=== PATIENT | female | born 1970 | race Caucasian/White ===

== ENCOUNTER 2016-06-29 23:55 | Emergency (ER) | payer OTHER ==
[2016-06-30] MEDS ORDERED: ONDANSETRON *ODT* 4 MG TABLET SL ONE
[2016-06-30] MEDS ORDERED: MECLIZINE HCL 25 MG TABLET (FP) PO ONE
--- NOTE | 2016-06-30 00:03 | PDOC ---
History of Present Illness - General Chief Complaint: Lightheaded Stated Complaint: DIZZINESS/HEAD PRESSURE/FACIAL TINGLING Time Seen by Provider: 06/29/16 23:56 History Source: Patient, Family Exam Limitations: Language Barrier - History of Present Illness Initial Comments: 06/30/16 00:01 This is a 46-year-old female brought in by her children for evaluation of vertigo. Patient does have a history of vertigo in the past and as per her family they said that she has had more frequent episodes of vertigo over the last several weeks. Patient also has some mild ringing in her left ear otherwise denies any other complaints. Patient said that when she does get the vertigo she does feel nauseous but does not vomit. Patient denies any blurry vision, numbness or weakness or any other neurological complaints. Patient said she did not have a workup including a head CT for her vertigo when he was diagnosed several years ago. PAST MEDICAL HISTORY: no significant history PAST SURGICAL HISTORY: no significant history FAMILY HISTORY: no pertinant history SOCIAL HISTORY: Pt lives with family and is employed. MEDICATIONS: reviewed ALLERGIES: As per nursing notes Review of Systems General: No fevers or chills, no weakness, no weight loss HEENT: No change in vision. No sore throat,. No ear pain CardioVascular: No chest pain or shortness of breath Respiratory:No cough, or wheezing. Gastrointestinal: + nausea, vomitting, diarrhea or constipation, No rectal bleeding Genitourinary: No dysuria, hematuria, or frequency Musculoskeletal: No joint or muscle pain or swelling Neurologic : Plus vertigo, dizziness Psychiatric: nor depression Skin: No rashes or easy bruising Endocrine: no increased thirst or abnormal weight change Allergic: no skin or latex allergy All other systems reviewed and normal GENERAL: The patient is awake, alert, and fully oriented, in no acute distress. HEAD: Normal with no signs of trauma. EYES: Pupils equal, round and reactive to light, extraocular movements intact, sclera anicteric, conjunctiva clear. EXTREMITIES: Normal range of motion, no edema. NEUROLOGICAL: Normal speech, normal gait. Nonfocal exam, grossly intact. PSYCH: Normal mood, normal affect. SKIN: Warm, Dry, normal turgor, no rashes or lesions noted. 06/30/16 02:[address] was negative for any acute pathology. Assessment and plan: This is a 38-year-old female with vertigo symptoms. Patient was concerned as she had not had them for a number of years and then they returned I got a CAT scan which was negative and she was discharged home with a prescription for meclizine. Past History - Past Medical History Allergies/Adverse Reactions: Allergies Allergy/AdvReac Type Severity Reaction Status Date / Time No Known Drug Allergies Allergy Verified 04/12/13 07:32 Home Medications: Ambulatory Orders Meclizine HCl 25 mg PO QID PRN #40 tablet 06/30/16 Ondansetron [Zofran Odt -] 4 mg SL TID #12 od.tablet 06/30/16 Anemia: Yes Diabetes: No GI Disorders: Yes Disorders: No Thyroid Disease: No - Psycho/Social/Smoking Cessation Hx Suicidal Ideation: No Smoking Status: No Smoking History: Never smoked Have you smoked in the past 12 months: No Number of Cigarettes Smoked Daily: 0 Hx Alcohol Use: Yes (SOCIALLY) Drug/Substance Use Hx: No Substance Use Type: Alcohol *Physical Exam - Vital Signs Last Vital Signs Temp Pulse Resp BP Pulse Ox 98.7 F 68 18 139/89 98 06/29/16 23:57 06/29/16 23:57 06/29/16 23:57 06/29/16 23:57 06/29/16 23:57 *DC/Admit/Observation/Transfer Diagnosis at time of Disposition: Vertigo - Discharge Dispostion Disposition: HOME Condition at time of disposition: Stable - Prescriptions Prescriptions: Meclizine HCl 25 mg PO QID PRN #40 tablet PRN Reason: Vertigo Ondansetron [Zofran Odt -] 4 mg SL TID #12 od.tablet - Patient Instructions Printed Discharge Instructions: DI for Benign Paroxysmal Positional Vertigo Additional Instructions: For the dizziness/vertigo take meclizine 1 tablet as often as every 4-6 hours as needed. For nausea you can take Zofran at one tablet dissolve under your tongue as often as every 6-8 hours. Return to the emergency department immediately with ANY new, persistent or worsening symptoms. Continue any medications as previously prescribed by your physician. You should follow up with your primary doctor as soon as possible regarding today's emergency department visit. . Please make sure your doctor reviews the results of your emergency evaluation. Thank you for coming to the Emergency Department today for your care. It was a pleasure to see you today. Please note that your evaluation is INCOMPLETE until you follow-up with your doctor.
[2016-06-30 00:06] VITALS: BP 139/89; PULSE 68; TEMP 98.7; BMI 32.1
== END 2016-06-30 01:07 | disposition home or self-care (01) ==
LOC: FER 23:55
DX: R42 Dizziness and giddiness (principal); D64.9 Anemia, unspecified
CPT/HCPCS: 70450-TC; 99281-25

== ENCOUNTER 2018-02-23 18:47 | Emergency (ER) | payer OTHER ==
[2018-02-23 18:50] VITALS: BP 135/82; PULSE 59; TEMP 98.5; BMI 32.9
--- NOTE | 2018-02-23 18:52 | PDOC ---
Rapid Medical Evaluation Chief Complaint: Lightheaded Time Seen by Provider: 02/23/18 18:51 Medical Evaluation: Allergies Allergy/AdvReac Type Severity Reaction Status Date / Time No Known Drug Allergies Allergy Verified 04/12/13 07:32 Vital Signs Temp Pulse Resp BP Pulse Ox 98.5 F 59 L 18 135/82 98 02/23/18 18:49 02/23/18 18:49 02/23/18 18:49 02/23/18 18:49 02/23/18 18:49 02/23/18 18:51 The patient presents with a chief complaint of: dizziness I have performed a brief in-person evaluation of this patient. Pertinent physical exam findings: vss, stable I have ordered the following: labs, ekg The patient will proceed to the ED for further evaluation.
--- NOTE | 2018-02-23 19:47 | PDOC ---
History of Present Illness - General Chief Complaint: Lightheaded Stated Complaint: BLURRY VISION/HEAD AND NECK PAIN Time Seen by Provider: 02/23/18 18:51 - History of Present Illness Initial Comments: 47 year old female with PMH of vertigo presenting with neck pain, headache, chest pain, right sided facial paresthesias, and lightheadedness. States that all of her symptoms began last Friday with neck tightness and her headache. Described the headache as an intermittent band like squeezing that ranges from 7 /10 to 8/10 which is partially relieved by rest and Advil and does not wake her up out of her sleep. She has had headaches in past but this is in a different location and much worse in intensity. She has also noticed facial tingling since Friday on the right side of her face that is intermittent as well. Her chest pain is a central pressure, non radiating, non-exertional, worse when laying flat, intermittent and a 7/10 with maximum intensity with slight relief with Advil. She has had intermittent blurry vision over the course of all of these symptoms but denies visual field deficits/ floaters. She does admit to some shortness of breath with the chest pain but denies nausea, vomiting, diaphoresis, fevers, chills, cough, congestion, or other symptoms. She has no cardiac history, family cardiac history, and had her check up with her PCP at [address] [place] [address] 6 months prior. Denies any recent travel, hormone replacement, leg swelling, leg pain, leg trauma, history of cancer, or other PE risk factors. 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 Denies EtOH or smoking. 02/23/18 20:20 Past History - Past Medical History Allergies/Adverse Reactions: Allergies Allergy/AdvReac Type Severity Reaction Status Date / Time No Known Drug Allergies Allergy Verified 04/12/13 07:32 Home Medications: Ambulatory Orders Meclizine HCl 25 mg PO QID PRN #40 tablet 06/30/16 Ondansetron [Zofran Odt -] 4 mg SL TID #12 od.tablet 06/30/16 Anemia: Yes COPD: No Diabetes: No GI Disorders: Yes Disorders: No Thyroid Disease: No - Suicide/Smoking/Psychosocial Hx Smoking Status: No Smoking History: Never smoked Have you smoked in the past 12 months: No Number of Cigarettes Smoked Daily: 0 Hx Alcohol Use: Yes (SOCIALLY) Drug/Substance Use Hx: No Substance Use Type: Alcohol Review of Systems - Review of Systems Constitutional: No: Chills, Diaphoresis, Fever HEENTM: Yes: Blurred Vision, Recent change in vision. No: Tearing, Double Vision Respiratory: Yes: Shortness of Breath. No: Cough, SOB with Exertion, Wheezing Cardiac (ROS): Yes: Chest Pain, Lightheadedness. No: Edema, Palpitations, Syncope, Chest Tightness ABD/GI: No: Diarrhea, Nausea : No: Burning, Dysuria, Discharge, Frequency, Hematuria Musculoskeletal: Yes: Muscle Pain. No: Back Pain, Joint Pain, Muscle Weakness Integumentary: No: Change in Color, Erythema, Flushing, Lesions Neurological: Yes: Headache, Paresthesia, Tingling. No: Numbness, Tremors, Weakness, Unsteady Gait, Ataxia Psychiatric: No: Anxiety, Depression, Frequent Crying, Stressors, Sleep Pattern Change, Emotional Problems Endocrine: No: Flushing, Increased Thirst Hematologic/Lymphatic: No: Anemia, Blood Clots, Easy Bleeding, Easy Bruising, Bleeding Diathesis *Physical Exam - Vital Signs Last Vital Signs Temp Pulse Resp BP Pulse Ox 98.5 F 59 L 18 135/82 98 02/23/18 18:49 02/23/18 18:49 02/23/18 18:49 02/23/18 18:49 02/23/18 18:49 - Physical Exam General Appearance: Yes: Nourished, Appropriately Dressed. No: Apparent Distress HEENT: positive: EOMI, NABILA, Normal ENT Inspection, Normal Voice, Pharynx Normal , Other (20/25 vision bilaterally without visual field deficit) Neck: positive: Trachea midline, Normal Thyroid, Supple. negative: Tender, Rigid Respiratory/Chest: positive: Lungs Clear, Normal Breath Sounds. negative: Chest Tender, Respiratory Distress, Accessory Muscle Use Cardiovascular: positive: Regular Rhythm, Regular Rate Gastrointestinal/Abdominal: positive: Normal Bowel Sounds, Flat, Soft. negative : Tender Lymphatic: negative: Adenopathy, Tenderness Musculoskeletal: positive: Normal Inspection. negative: Decreased Range of Motion Extremity: positive: Normal Capillary Refill, Normal Inspection, Normal Range of Motion. negative: Tender Integumentary: positive: Normal Color, Dry, Warm Neurologic: positive: match maker II-XII NML intact, Fully Oriented, Alert, Normal Mood/ Affect, Normal Response, Motor Strength 5/5 Heart Score/ECG Review - History History: Slightly suspicious - Electrocardiogram EKG: Normal - Age Age: 45-65 - Risk Factors Based on the list above the patient has:: No risk factors known - Troponin Troponin: </= normal limit - Score Heart Score - Total: 1 ED Treatment Course - LABORATORY CBC & Chemistry Diagram: 02/23/18 20:41 02/23/18 20:41 Medical Decision Making - Medical Decision Making 47 year old female with PMH of vertigo and GERD presenting with headache, chest pain, and right sided facial paresthsesis intermittently for one week. Head CT negative, labs WNL, CXR negative. Pain improved with 975 Tylenol and Toradol 15 IV. Patient appears very well with stable VS. 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 Patient feeling well and would like to leave. We are comfortable with her gong home as this is not likely ICH (negative head CT w/o risk factors, and contradictory timeline), SC (no risk factors and negative trop/ekg), or PE ( neg risk factors and inconsistent PE/ VS). Will DC home with return precautions and follow up instructions. 02/23/18 21:48 *DC/Admit/Observation/Transfer Diagnosis at time of Disposition: Paresthesias Headache Qualifiers: Headache type: tension-type Headache chronicity pattern: acute headache Intractability: not intractable Qualified Code(s): G44.209 - Tension-type headache, unspecified, not intractable Chest pain Qualifiers: Chest pain type: unspecified Qualified Code(s): R07.9 - Chest pain, unspecified - Discharge Dispostion Disposition: HOME Condition at time of disposition: Improved Decision to Admit order: No - Referrals Referrals: [facility] [place] [Provider Group] - Patient Instructions Printed Discharge Instructions: DI for Headache, DI for Atypical Chest Pain Additional Instructions: Utilice Tylenol e ibuprofeno 600 mg cada 4-6 horas para el dolor. Por favor, jose angel un seguimiento con nuñez PCP en unos arteaga. Regrese al servicio de urgencias si tiene empeoramiento del dolor de hina, empeoramiento del dolor en el pecho o empeoramiento de SOB. Print Language: GREENLANDIC - Post Discharge Activity
[2018-02-23] MEDS ORDERED: ACETAMINOPHEN 500 MG TABLET (FP) PO ONE (20:19)
[2018-02-23] MEDS ORDERED: ACETAMINOPHEN 325 MG TABLET (FP) ONE (20:37)
[2018-02-23 21:10] LABS: BASO % 1.1 % (0-2.0); EOS % 2.7 % (0-4.5); HEMATOCRIT 42.3 % (32.4-45.2); HEMOGLOBIN 14.4 GM/dL (10.7-15.3); LYMPH % 31.7 % (8-40); MCH 29.7 pg (25.7-33.7); MCHC 34.2 g/dl (32.0-36.0); MEAN CELL VOLUME 86.9 fl (80-96); MEAN PLT VOLUME 9.7 fl (7.5-11.1); MONO % 6.1 % (3.8-10.2); NEUT % 58.4 % (42.8-82.8); PLATELET COUNT 275 K/MM3 (134-434); RBC 4.87 M/mm3 (3.60-5.2); RDW 12.8 % (11.6-15.6); WHITE BLOOD COUNT 9.3 K/mm3 (4.0-10.0)
[2018-02-23 21:36] LABS: ALBUMIN 4.2 g/dl (3.4-5.0); ALK PHOS 87 U/L (45-117); ANION GAP 8 MMOL/L (8-16); BILIRUBIN,TOTAL 0.5 mg/dL (0.2-1); BLOOD UREA NITROGEN 18 mg/dL (7-18); CALCIUM 10.6 mg/dL (8.5-10.1); CHLORIDE 106 mmol/L (98-107); CO2 27 mmol/L (21-32); CREATININE 0.9 mg/dL (0.55-1.3); GLUCOSE,RANDOM 102 mg/dL (74-106); POTASSIUM 4.1 mmol/L (3.5-5.1); SGOT/AST 21 U/L (15-37); SGPT/ALT 41 U/L (13-61); SODIUM 140 mmol/L (136-145); TOT PROT 7.7 g/dl (6.4-8.2)
[2018-02-23 21:41] LABS: URINE APPEARANCE CLEAR; URINE BILIRUBIN NEGATIVE (<2.0 mg/dL); URINE COLOR YELLOW; URINE GLUCOSE (UA) NEGATIVE (NEGATIVE); URINE KETONE NEGATIVE (NEGATIVE); URINE LEUK ESTERASE NEGATIVE (NEGATIVE); URINE NITRITE NEGATIVE (NEGATIVE); URINE PROTEIN NEGATIVE (NEGATIVE); URINE UROBILINOGEN NEGATIVE mg/dL (0.2-1.0)
[2018-02-23 21:43] LABS: CALCIUM OXALATE CRYSTALS FEW /hpf (NONE SEEN); EPI CELLS RARE /HPF (FEW); URINE MUCUS RARE
[2018-02-23] MEDS ORDERED: KETOROLAC TROMETHAMINE 15 MG/ML VIAL IVPUSH ONE (21:46)
[2018-02-23] MEDS ORDERED: SODIUM CHLORIDE 0.9% 500 ML INFUS.BAG IV ONE (21:47)
[2018-02-23] MEDS ORDERED: KETOROLAC TROMETHAMINE 15 MG/ML VIAL ONE (21:50)
--- NOTE | 2018-02-23 22:03 | PDOC ---
Attending Attestation - HPI HPI: 02/23/18 22:13 The patient is a 47 year old female, with no significant past medical history, who presents to the emergency department with intermittent headache, chest pain , facial numbness, blurred vision, and shortness of breath since last Friday. She reports her headache began on Friday and has been intermittent and located to her bilateral temporal and occipital regions. She states her headache is unlike her usual headaches. She states the headache ranges from a 7 to 8 out of 10 in severity. She reports intermittent right facial numbness since Friday, but denies any slurred speech. She states she had chest pain on Friday which has been intermittent and felt like squeezing. She denies radiation of her chest pain into her neck or extremities. The patient denies dizziness. The patient denies fever, chills, nausea, vomit, diarrhea and constipation. The patient denies dysuria, frequency, urgency and hematuria. Allergies: NKDA - Medical Decision Making 02/23/18 22:13 Documentation prepared by Adele Turk, acting as medical reimbursement specialist for Fidelina Fontanez MD, <Adele Turk - Last Filed: 02/23/18 22:13> - Resident Resident Name: Chapo Jovel - ED Attending Attestation I have performed the following: I have examined & evaluated the patient, The case was reviewed & discussed with the resident, I agree w/resident's findings & plan, Exceptions are as noted - Physicial Exam PE: GENERAL: Awake, alert, and fully oriented, in no acute distress HEAD: No signs of trauma EYES: PERRLA, EOMI, sclera anicteric, conjunctiva clear ENT: Auricles normal inspection, hearing grossly normal, nares patent, oropharynx clear without exudates. Moist mucosa NECK: Normal ROM, supple, no lymphadenopathy, JVD, or masses LUNGS: Breath sounds equal, clear to auscultation bilaterally. No wheezes, and no crackles HEART: Regular rate and rhythm, normal S1 and S2, no murmurs, rubs or gallops ABDOMEN: Soft, nontender, normoactive bowel sounds. No guarding, no rebound. No masses EXTREMITIES: Normal range of motion, no edema. No clubbing or cyanosis. No cords, erythema, or tenderness NEUROLOGICAL: Cranial nerves II through XII grossly intact. Normal speech, normal gait. Motor and sensation intact. SKIN: Warm, Dry, normal turgor, no rashes or lesions noted. - Medical Decision Making Pt with no significant findings on exam. CTH wnl and troponin negative, and as symptoms started a few days ago, low suspicion for an acute event. Stable for DC home. <Fidelina Fontanez - Last Filed: 02/23/18 22:29>
--- NOTE | 2018-02-24 10:51 | EKG ---
Test Reason : Blood Pressure : / mmHG Vent. Rate : 053 BPM Atrial Rate : 053 BPM P-R Int : 146 ms QRS Dur : 094 ms QT Int : 438 ms P-R-T Axes : 040 -23 047 degrees QTc Int : 410 ms POOR DATA QUALITY, INTERPRETATION MAY BE ADVERSELY AFFECTED SINUS BRADYCARDIA OTHERWISE NORMAL ECG Confirmed by MD XOCHITL, AGUS ([id number]) on 02/24/2018 10:51:28 AM Referred By: Confirmed By:AGUS LEUNG MD
== END 2018-02-23 23:23 | disposition home or self-care (01) ==
LOC: JER 18:47
PROC: 3E0337Z Introduction of Electrolytic and Water Balance Substance into Peripheral Vein, Percutaneous Approach (ICD-10-PCS; principal; 2018-02-23)
PROC: 3E0333Z Introduction of Anti-inflammatory into Peripheral Vein, Percutaneous Approach (ICD-10-PCS; 2018-02-23)
DX: R20.2 Paresthesia of skin (principal); G44.209 Tension-type headache, unspecified, not intractable; R07.9 Chest pain, unspecified
CPT/HCPCS: 36415; 70450-TC; 71045-TC-FY; 80053; 81003; 81015; 84484; 85025; 93005; 93010; 96374; 99283-25

== ENCOUNTER 2022-07-07 06:44 | Emergency (ER) | payer OTHER ==
[2022-07-07 07:05] VITALS: BP 113/73; PULSE 56; RESP 18; TEMP 98.1; BMI 36.3
[2022-07-07] MEDS ORDERED: MAG HYDROX/AL HYDROX/SIMETH -MYLANTA- ORAL SUSPENSION PO ONE (07:24)
[2022-07-07] MEDS ORDERED: FAMOTIDINE 20 MG/50 ML IVPB 20 MG/50 ML MG IVPB ONE ×2 (07:24→07:42)
[2022-07-07] MEDS ORDERED: ACETAMINOPHEN 1000 MG/100 ML BAG IVPB ONE (07:24)
[2022-07-07] MEDS ORDERED: ACETAMINOPHEN INJECTION 100 ML IVPB ONE (07:41)
[2022-07-07] MEDS ORDERED: MAG HYDROX/AL HYDROX/SIMETH 30 ML UNIT-DOSE CUP ONE (07:42)
[2022-07-07 08:28] LABS: BASO % 1.2 % (0-2.0); EOS % 2.3 % (0-4.5); HEMATOCRIT 44.6 % (32.4-45.2); HEMOGLOBIN 15.3 GM/dL (10.7-15.3); LYMPH % 27.8 % (8-40); MCH 29.8 pg (25.7-33.7); MCHC 34.3 g/dl (32.0-36.0); MEAN PLT VOLUME 9.6 fl (7.5-11.1); MONO % 6.5 % (3.8-10.2); NEUT % 62.2 % (42.8-82.8); PLATELET COUNT 220 10^3/uL (134-434); RBC 5.13 M/mm3 (3.60-5.2); RDW 13.2 % (11.6-15.6); WHITE BLOOD COUNT 7.9 K/mm3 (4.0-10.0)
[2022-07-07 08:31] LABS: ALBUMIN 3.9 g/dl (3.4-5.0); CALCIUM 9.6 mg/dL (8.5-10.1)
[2022-07-07 08:32] LABS: BLOOD UREA NITROGEN 13.6 mg/dL (7-18); MAGNESIUM 2.1 mg/dL (1.8-2.4)
[2022-07-07 08:34] LABS: CREATININE 0.6 mg/dL (0.55-1.3)
[2022-07-07 08:36] LABS: BILIRUBIN,TOTAL 0.8 mg/dL (0.2-1)
[2022-07-07 08:37] LABS: PH,URINE 6.5 (5.0-8.0); URINE APPEARANCE CLEAR; URINE BILIRUBIN NEGATIVE (NEGATIVE); URINE COLOR YELLOW; URINE GLUCOSE (UA) NEGATIVE (NEGATIVE); URINE KETONE NEGATIVE (NEGATIVE); URINE LEUK ESTERASE NEGATIVE (NEGATIVE); URINE NITRITE NEGATIVE (NEGATIVE); URINE PROTEIN NEGATIVE (NEGATIVE); URINE UROBILINOGEN 0.2 mg/dL (0.2-1.0)
== END 2022-07-07 10:02 | disposition home or self-care (01) ==
LOC: JER 06:44
PROC: 3E0333Z Introduction of Anti-inflammatory into Peripheral Vein, Percutaneous Approach (ICD-10-PCS; principal; 2022-07-07)
PROC: 3E033GC Introduction of Other Therapeutic Substance into Peripheral Vein, Percutaneous Approach (ICD-10-PCS; 2022-07-07)
DX: R10.13 Epigastric pain (principal)
CPT/HCPCS: 36415; 71045-TC-FY; 74177-TC; 80053; 81003; 82272; 83690; 83735; 84484; 84703; 85025; 87086; 87186; 93005; 93010; 99284-25

== ENCOUNTER 2022-09-29 13:33 | Emergency (ER) | payer OTHER ==
[2022-09-29 13:37] VITALS: BP 138/83; PULSE 70; RESP 18; TEMP 98; BMI 33.7
[2022-09-29] MEDS ORDERED: NAPROXEN 500 MG TABLET PO ONE (13:57)
[2022-09-29] MEDS ORDERED: DEXAMETHASONE SOD PHOSPHATE 4 MG/1 ML VIAL IM ONE (13:57)
[2022-09-29] MEDS ORDERED: DEXAMETHASONE 4 MG TABLET (FP) ONE (14:01)
[2022-09-29] MEDS ORDERED: NAPROXEN 500 MG TABLET ONE (14:01)
[2022-09-29 14:49] LABS: THROAT:GRP A STREP NOT DETECTED (NOTDETECTED)
== END 2022-09-29 14:17 | disposition home or self-care (01) ==
LOC: JER 13:33 → JERFT 13:33
PROC: 3E023GC Introduction of Other Therapeutic Substance into Muscle, Percutaneous Approach (ICD-10-PCS; principal; 2022-09-29)
DX: R07.0 Pain in throat (principal); R68.83 Chills (without fever); R59.0 Localized enlarged lymph nodes; R09.81 Nasal congestion; Z20.822 Contact with and (suspected) exposure to COVID-19
CPT/HCPCS: 0241U-QW; 87651; 96372; 99284-25